=== PATIENT | female | born 1940 | race Caucasian/White ===

== ENCOUNTER → 2024-03-10 14:46 | Outpatient (REF) | payer OTHER, SELFPAY | LOC: WDC 14:46 | PROVIDERS: ATTENDING PHYSICIAN Family Medicine | DX: Z12.31 Encounter for screening mammogram for malignant neoplasm of breast (principal) | CPT/HCPCS: 77063; 77067 ==

== ENCOUNTER → 2024-08-21 10:51 | Outpatient (REF) | payer OTHER, SELFPAY | LOC: RAD 10:51 | PROVIDERS: ATTENDING PHYSICIAN Physician Assistant; FAMILY PHYSICIAN Family Medicine | DX: D48.5 Neoplasm of uncertain behavior of skin (principal) | CPT/HCPCS: 76536 ==

== ENCOUNTER → 2024-09-25 10:53 | Outpatient (REF) | payer OTHER, SELFPAY | LOC: HWRAD 10:53 | PROVIDERS: ATTENDING PHYSICIAN Physician Assistant; FAMILY PHYSICIAN Family Medicine | DX: L98.9 Disorder of the skin and subcutaneous tissue, unspecified (principal) | CPT/HCPCS: 76705 ==

== ENCOUNTER → 2025-03-23 14:40 | Outpatient (REF) | payer OTHER, SELFPAY | LOC: WDC 14:40 | PROVIDERS: ATTENDING PHYSICIAN Family Medicine | DX: Z12.31 Encounter for screening mammogram for malignant neoplasm of breast (principal) | CPT/HCPCS: 77063; 77067 ==

== ENCOUNTER 2025-08-04 11:48 | Emergency (ER) | payer OTHER, SELFPAY ==
[2025-08-04 11:50] VITALS: BP 117/54
--- NOTE | 2025-08-04 12:01 | ED.GENMED ---
History of Present Illness
<CHAD Tineo - Last Filed: 08/04/25 14:39>
General
Chief Complaint: Fall
Source: patient
Exam Limitations: none
Time Seen by Provider: 08/04/25 12:00
Nursing documentation reviewed up to this point in time: agreed with
History of Present Illness
History of Present Illness:
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 She denies loss of conscious. She complains of swelling above her left eyelid and
pain to the left forearm elbow region. She also c/o of of a laceration to her chin.
Phy Exam
<CHAD Tineo - Last Filed: 08/04/25 14:39>
General Physical Exam
General Presentation: no apparent distress
General age: appears stated age
General Skin: warm and dry
General Habitus: normal
General Mental: alert
General Hydration: appears well hydrated
ENT Exam
ENT Exam: EOMI and other ( )
Eye Exam
Eye Exam: PERRL, EOMI and other (+ Ecchymosis and swelling to left orbit; no entrapment)
Eye Exam General: PERRL: bilateral and EOM intact: bilateral
Pupil Exam: Bilateral: round and reactive
Neurological Exam
Neurological Exam: alert, oriented x3, no motor deficits, no sensory deficits and speech normal
Musculoskeletal Exam
Musculoskeletal Exam: other (+ Hematoma to left orbit no bony C-spine tenderness; patient tender to the left radial head, proximal forearm region no obvious abrasions or swelling strong distal pulses and normal sensation; full range of motion of
bilateral hips)
Skin Exam
Skin Exam: normal color, warm/dry and other (1/2 cm partial-thickness laceration to chin below left lip)
Psychiatric Exam
Psychiatric Exam: normal mood/affect
Course
<CHAD Tineo - Last Filed: 08/04/25 14:39>
Orders/Labs/Results
Orders:
Orders
08/04/25 12:15
CT Head W/o Iv Contrast Urgent
Comment:
Reason For Exam: trauma
CT Orbits W/o Iv Contrast Urgent
Comment:
Reason For Exam: trauma
08/04/25 12:17
CT Cervical Spine W/o Iv Contr Urgent
Comment:
Reason For Exam: trauma
08/04/25 12:18
Elbow, 3 view, Left [CR Elbow - Left Min 3 Views ] Urgent
Comment:
Reason For Exam: trauma
Wrist, Left 3 Views CR [CR Wrist - Left Min 3 Views] Urgent
Comment:
Reason For Exam: trauma
08/04/25 13:15
Cardiac Monitoring- Treatment ONCE
08/04/25 13:37
Splints/Slings/Crut- Treatment ONCE
Location: Left
Type of Splint: Long Arm
08/04/25 13:45
Comprehensive Metabolic Panel Urgent
08/04/25 13:47
Cervical Collar- Treatment ONCE
Collar Type: Hard Cervical Collar
08/04/25 13:48
Complete Blood Count/With Diff Urgent
08/04/25 13:49
Tetanus/Diphth/Acelpertussis [Adacel] 0.5 ml IM .ONCE ONE
Abnormal Lab Results
08/04/25 08/04/25
13:45 13:48
WBC 13.6 H 10^3/uL
(4.8-10.8)
Abs Immat Gran (auto) 0.1 H 10^3/uL
(0-0.05)
Absolute Neuts (auto) 10.7 H 10^3/uL
(1.4-6.5)
Absolute Monos (auto) 0.8 H 10^3/uL
(0.1-0.6)
Neutrophils % 79.1 H %
(42.2-75.2)
Lymphocytes % 13.7 L %
(20.5-51.1)
BUN 19 H mg/dl
(7-17)
Glucose 147 H mg/dl
(70-99)
Calcium 10.7 H mg/dl
(8.4-10.2)
08/04/25 13:48
08/04/25 13:45
Vital Signs
Initial and Last Documented VS:
Initial Vital Signs
Temp Pulse Resp BP Pulse Ox
97.8 F 74 18 117/54 96
08/04/25 11:50 08/04/25 11:50 08/04/25 11:50 08/04/25 11:50 08/04/25 11:50
Last Documented Vital Signs
Temp Pulse Resp BP Pulse Ox
97.8 F 68 18 107/57 98
08/04/25 11:59 08/04/25 14:00 08/04/25 14:00 08/04/25 14:00 08/04/25 14:00
Oracle Specialist consulted with Physician
Oracle Specialist consulted with physician?: Yes (Lorenzo )
<Shane Ventura, DO - Last Filed: 08/04/25 13:50>
Orders/Labs/Results
Orders:
Orders
08/04/25 12:15
CT Head W/o Iv Contrast Urgent
Comment:
Reason For Exam: trauma
CT Orbits W/o Iv Contrast Urgent
Comment:
Reason For Exam: trauma
08/04/25 12:17
CT Cervical Spine W/o Iv Contr Urgent
Comment:
Reason For Exam: trauma
08/04/25 12:18
Elbow, 3 view, Left [CR Elbow - Left Min 3 Views ] Urgent
Comment:
Reason For Exam: trauma
Wrist, Left 3 Views CR [CR Wrist - Left Min 3 Views] Urgent
Comment:
Reason For Exam: trauma
08/04/25 13:15
Cardiac Monitoring- Treatment ONCE
08/04/25 13:37
Splints/Slings/Crut- Treatment ONCE
Location: Left
Type of Splint: Long Arm
08/04/25 13:45
Comprehensive Metabolic Panel Urgent
08/04/25 13:47
Cervical Collar- Treatment ONCE
Collar Type: Hard Cervical Collar
08/04/25 13:48
Complete Blood Count/With Diff Urgent
08/04/25 13:49
Tetanus/Diphth/Acelpertussis [Adacel] 0.5 ml IM .ONCE ONE
Abnormal Lab Results
08/04/25 08/04/25
13:45 13:48
WBC 13.6 H 10^3/uL
(4.8-10.8)
Abs Immat Gran (auto) 0.1 H 10^3/uL
(0-0.05)
Absolute Neuts (auto) 10.7 H 10^3/uL
(1.4-6.5)
Absolute Monos (auto) 0.8 H 10^3/uL
(0.1-0.6)
Neutrophils % 79.1 H %
(42.2-75.2)
Lymphocytes % 13.7 L %
(20.5-51.1)
BUN 19 H mg/dl
(7-17)
Glucose 147 H mg/dl
(70-99)
Calcium 10.7 H mg/dl
(8.4-10.2)
08/04/25 13:48
08/04/25 13:45
Vital Signs
Initial and Last Documented VS:
Initial Vital Signs
Temp Pulse Resp BP Pulse Ox
97.8 F 74 18 117/54 96
08/04/25 11:50 08/04/25 11:50 08/04/25 11:50 08/04/25 11:50 08/04/25 11:50
Last Documented Vital Signs
Temp Pulse Resp BP Pulse Ox
97.8 F 68 18 107/57 98
08/04/25 11:59 08/04/25 14:00 08/04/25 14:00 08/04/25 14:00 08/04/25 14:00
Procedures
<CHAD Tineo - Last Filed: 08/04/25 14:39>
Laceration Closure
Face:
Status of Wound: clean
Size of Wound in cm: 0.5
Description of Wound Edges: sharp
Preparation: cleaned with saline
Revision/Debridement: irrigate-direct pressure
Type of Closure: Dermabond-skin glue
<CHAD Tineo - Last Filed: 08/04/25 14:39>
MDM/Problems Addressed
Differential Diagnosis Includes:
Not limited to orbital fracture orbital contusion, intracranial hemorrhage cervical fracture laceration
MDM/Problems Addressed:
Patient is an 84-year-old female not on blood thinners describes mechanical fall landing on her head patient presents awake alert no loss of consciousness patient has obvious hematoma to left orbital region no bony tenderness however with mechanism
CAT scan of head and C-spine were done CAT scan shows acute traumatic subarachnoid hemorrhage in the right temporal lobe large 4.0 cm acute hematoma in the preseptal soft tissues of the left orbit no evidence of orbital injury. Case reviewed ED
physician
In addition patient has a left radial head fracture. Patient had a small inner lip lower laceration that does not require repair; she does have a small superficial partial-thickness laceration to her outer chin which I did repair with skin adhesive.
I did speak with patient who requested transfer to [place] and spoke with admitting trauma who did except patient as a level 2 trauma
1430: Patient no requests that she be transferred for to [facility] instead. I did speak with [facility] and patient was accepted as a trauma to [facility] under Dr. Jaramillo .
Patient dana stable with a GCS of 15 awake alert no complaints of headache or nausea.
Her left arm was splinted for support tetanus was updated
<CHAD Tineo - Last Filed: 08/04/25 14:39>
*Radiology
Radiology exam reviewed: radiology read reviewed
*Pulse Oximetry
SaO2: 96
Oxygen Mode of Delivery: Room air
Patient hypoxic: no
<Shane Ventura DO - Last Filed: 08/04/25 13:50>
*Heel Coverer Machine Operator Interpretation
Rate: Heel Coverer Machine Operator- N/A
*Critical Care Note
Total Time (30-74mins, 75-104mins- exclusive of procedures): 30
ED Attending Note
<CHAD Tineo - Last Filed: 08/04/25 14:39>
-
Portions of this chart may have been created with voice recognition software.� Occasional wrong word or��sound alike� substitutions may have occurred due to the inherent limitations of voice recognition software.
<Shane Ventura DO - Last Filed: 08/04/25 13:50>
ED Attending Note
Patient seen and examined by attending physician: Yes
I performed the substantive portion of visit, reviewed & personally made and approve the management plan that is documented in note by myself or TRAN.: Yes
ED Attending Note:
Seen with TRAN examined independently slip and fall head strike left upper extremity pain, patient with traumatic subarachnoid hemorrhage and radial head fracture no blood thinners GCS 15 will require transfer to trauma center
Discharge Plan
Departure
Patient Disposition: Acute Care Hospital
Date of Disposition: 08/04/25
Time of Disposition: 13:50
Patient with high blood pressure during this ER visit?: No
Condition: Fair
Covid-19: Not Applicable
Discharge Problem:
Subarachnoid hemorrhage, Hematoma of left orbit, Elbow fracture, left, Facial laceration
Referrals:
[facility], [Other]
Messi Nicolas, DO [Family Provider, Family Practice]
Hospital Transfer
Other hospital: [facility]
I certify that the patient requires transfer: Yes
Discussed case with accepting physician: DR Jaramillo
Reason for transfer: higher level of care
Interventions
Interventions:
*Risk Screen - Suicide Last Done: 08/04/25 11:59
*General Assessment Last Done: 08/04/25 11:59
*Neglect/Abuse Screening Last Done: 08/04/25 12:07
*ED- Fall Risk Assessment Last Done: 08/04/25 12:09
*ED COVID-19 Vaccine History Last Done: 08/04/25 12:10
ED-Musculoskeletal Assessment Last Done: 08/04/25 12:10
ED- Neurological Assessment Last Done: 08/04/25 12:09
ED-Skin Assessment Last Done: 08/04/25 12:10
Discharge Date and Time
Print Language: IRANIAN
[2025-08-04 12:08] VITALS: BMI 30.7
[2025-08-04 13:55] LABS: Hematocrit 41.2 % (37.0-47.0); Hemoglobin 14.1 g/dL (12.0-16.0); Mean Corp Hgb Conc. 34.2 g/dL (33.0-37.0); Mean Corpuscular Volume 89.6 fL (81.0-99.0); Nucleated Red Blood Cells % 0 %; Platelet Count 250 10^3/uL (130-400); Red Cell Dist. Width 12.6 % (11.5-14.5)
[2025-08-04 14:00] VITALS: BP 107/57
[2025-08-04 14:11] LABS: ALT (SGPT) 20 U/L (0-35); AST (SGOT) 19 U/L (14-36); Albumin 4.6 g/dl (3.5-5.0); Alkaline Phosphatase 121 U/L (38-126); Blood Urea Nitrogen 19 mg/dl (7-17); Calcium 10.7 mg/dl (8.4-10.2); Carbon Dioxide 30 mmol/L (22-30); Chloride 106 mmol/L (98-107); Estimated Creatinine Clearance 80 ml/min; Glucose 147 mg/dl (70-99); Potassium 4.1 mmol/L (3.5-5.1); Sodium 142 mmol/L (135-145); Total Protein 7.1 g/dl (6.3-8.2); eGFR > 60.00
[2025-08-04] MEDS: ADACEL 0.5 ML IM (15:05)
== END 2025-08-04 15:46 | disposition short-term general hospital (02) ==
LOC: EMR 11:48
PROVIDERS: Nurse Practitioner; EMERGENCY PHYSICIAN Emergency Medicine; FAMILY PHYSICIAN Family Medicine
DX: S06.6X0A Traumatic subarachnoid hemorrhage without loss of consciousness, initial encounter (principal); S01.81XA Laceration without foreign body of other part of head, initial encounter; S42.442A Displaced fracture (avulsion) of medial epicondyle of left humerus, initial encounter for closed fracture; S52.125A Nondisplaced fracture of head of left radius, initial encounter for closed fracture; W01.0XXA Fall on same level from slipping, tripping and stumbling without subsequent striking against object, initial encounter; Z23 Encounter for immunization
CPT/HCPCS: 12011; 29105; 90471; 99291; 70450; 70480; 72125; 73080; 73110; 80053; 85025; 90715